=== PATIENT | female | born 1985 | race Two or more races ===

== ENCOUNTER 2020-03-15 16:07 | Emergency (ER) | payer MEDICAID, OTHER ==
[~2020-03-15] VITALS: Ht 165.1 cm; Wt 81.6 kg
[~2020-03-15 16:07] MED LIST: BCP; NORPTMEDS CO; PREN-96 PO
[2020-03-15 16:18] VITALS: BP 130/78
== END 2020-03-15 17:34 | disposition home or self-care (01) ==
LOC: ER 16:07 → EDBD 16:07 → ER 17:34
DX: S39.012A Strain of muscle, fascia and tendon of lower back, initial encounter (principal); S50.812A Abrasion of left forearm, initial encounter; V43.52XA Car driver injured in collision with other type car in traffic accident, initial encounter; Y93.I9 Activity, other involving external motion; Y92.410 Unspecified street and highway as the place of occurrence of the external cause; Y99.8 Other external cause status

== ENCOUNTER → 2022-11-19 | Emergency (ER) | payer MEDICAID ==
[~2022-11-19] VITALS: Ht 162.6 cm; Wt 104.5 kg
[~2022-11-19] MED LIST changes: +KETOROLAC TROMETH 30 MG/ML 1ML VIAL IM ONE
[2022-11-19 18:22] VITALS: BP 134/89
[2022-11-19 19:06] LABS: Mean Corpuscular Hemoglobin 25.8 pg (28.0-32.0)
[2022-11-19 19:09] LABS: Hematocrit 35.6 % (36.0-46.0); Mean Corpuscular Hgb Conc. 33.6 g/dL (32.0-36.0); Mean Corpuscular Volume 76.6 fL (80.0-100.0); Red Blood Cells 4.65 10^6/uL (4.0-5.20); White Blood Cell 6.2 10^3/uL (4.4-10.8)
[2022-11-19 19:13] LABS: Band Neutrophils % (manual) 0; Basophils % (manual) 0 (0.0-2.0); Blast Cells 0; Metamyelocytes % 0; Myelocytes % 0; Promyelocytes % 0; Reactive Lymphocytes 0
[2022-11-19 19:24] LABS: Albumin 3.9 g/dL (3.4-5.0); Calcium 8.6 mg/dL (8.5-10.1); Potassium 3.8 mmol/L (3.5-5.1)
[2022-11-19 19:28] LABS: BUN/Creatinine Ratio 19.7 (10.0-20.0); Bilirubin, Total 0.7 mg/dL (0.2-1.0); Total Protein 7.8 g/dL (6.4-8.2)
[2022-11-19 19:51] LABS: Eosinophils % (manual) 6 (0-7); Lymphocytes % (manual) 62 (10.0-50.0); Monocytes % (manual) 6 (0-12)
== END | disposition home or self-care (01) ==
LOC: ER 17:13
DX: R51.9 Headache, unspecified (principal); Z90.49 Acquired absence of other specified parts of digestive tract
CPT/HCPCS: 36415; 70450; 80053; 85007; 85027; 96372; 99285; J1885

== ENCOUNTER 2023-05-03 03:48 | Emergency (ER) | payer MEDICAID ==
[~2023-05-03] VITALS: Ht 160 cm; Wt 104.0 kg
[~2023-05-03 03:48] MED LIST changes: -KETOROLAC TROMETH 30 MG/ML 1ML VIAL IM ONE
[2023-05-03 04:54] LABS: Basophils # (auto) 0 10 ^3/uL (0-0.2); Basophils % (auto) 0.7 % (0.0-2.0); Eosinophils # (auto) 0.5 10 ^3/uL (0-0.8); Eosinophils % (auto) 7.6 % (0.0-7.0); Hematocrit 43.4 % (36.0-46.0); Hemoglobin 14.7 g/dL (12.2-16.2); Lymphocytes % (auto) 45.4 % (10.0-50.0); Mean Corpuscular Hemoglobin 27.6 pg (28.0-32.0); Mean Corpuscular Hgb Conc. 33.9 g/dL (32.0-36.0); Mean Corpuscular Volume 81.4 fL (80.0-100.0); Monocytes # (auto) 0.5 10 ^3/uL (0-1.3); Monocytes % (auto) 7.5 % (0.0-12.0); Neutrophils # (auto) 2.6 10 ^3/uL (1.6-8.6); Neutrophils % (auto) 38.8 % (37.0-80.0); Nucleated Red Blood Cells % 0.2 %; Red Blood Cells 5.32 10^6/uL (4.0-5.20); Red Cell Distribution Width 17.5 % (11.8-14.3); White Blood Cell 6.7 10^3/uL (4.4-10.8)
[2023-05-03 05:06] LABS: INR 0.99 (0.9-1.15); Partial Thromboplastin Time 29.6 SEC (24.5-34.5); Prothrombin Time 10.4 sec (9.3-11.8)
[2023-05-03 05:11] LABS: Alanine Aminotransferase 37 U/L (7-40); Alkaline Phosphatase 102 U/L (46-116); Anion Gap 7 (5-15); Aspartate Aminotransferase 34 U/L (13-40); BUN/Creatinine Ratio 7.6 (10.0-20.0); Blood Urea Nitrogen 6 mg/dL (9-23); Calcium 9.2 mg/dL (8.7-10.4); Carbon Dioxide 26 mmol/L (20-30); Chloride 105 mmol/L (98-107); Glucose 124 mg/dL (74-106); Magnesium 1.9 mg/dL (1.6-2.6); Potassium 3.6 mmol/L (3.5-5.1); Sodium 138 mmol/L (136-145)
[2023-05-03 05:12] LABS: Albumin 4.4 g/dL (3.2-4.8); Bilirubin, Total 1.4 mg/dL (0.2-1.0); Total Protein 7.4 g/dL (5.7-8.2)
[2023-05-03] MEDS ORDERED: methylPREDNISolone SOD SUCC 125 MG/2 ML VL IM ONE (09:00)
[2023-05-03 11:30] VITALS: BP 134/98; PULSE 98; RESP 19; TEMP 97.8; O2SAT 95
== END 2023-05-03 11:34 | disposition home or self-care (01) ==
LOC: ER 03:48
DX: J45.901 Unspecified asthma with (acute) exacerbation (principal); Z90.49 Acquired absence of other specified parts of digestive tract; Z98.890 Other specified postprocedural states
CPT/HCPCS: 36415; 71045; 71275; 80053; 83735; 83880; 84484; 85025; 85610; 85730; 93005; 96372; 99285; J2930

== ENCOUNTER 2023-08-08 21:00 | Emergency (ER) | payer MEDICAID ==
[~2023-08-08] VITALS: Ht 160 cm; Wt 109.0 kg
[2023-08-08 22:01] VITALS: BP 133/79; PULSE 95; RESP 18; TEMP 98.2; O2SAT 94
== END 2023-08-08 22:17 | disposition home or self-care (01) ==
LOC: ER 21:00
DX: Z48.00 Encounter for change or removal of nonsurgical wound dressing (principal); Z90.49 Acquired absence of other specified parts of digestive tract

== ENCOUNTER 2023-08-20 10:15 | Emergency (ER) | payer MEDICAID ==
[~2023-08-20] VITALS: Ht 160 cm; Wt 101.0 kg
[2023-08-20 11:23] LABS: Urine Bacteria FEW /hpf (None Seen); Urine Blood 3+ /uL (Negative); Urine Clarity Clear (Clear); Urine Color Yellow (Yellow); Urine Mucus FEW (None Seen); Urine Protein, UAD 1+ (Negative); Urine Specific Gravity 1.031 (1.001-1.035); Urine WBC 5 /hpf (0 - 5)
[2023-08-20] MEDS ORDERED: HYDR-4902 PO (13:37)
[2023-08-20 14:22] VITALS: BP 124/98; PULSE 104; RESP 20; TEMP 97.5; O2SAT 96
== END 2023-08-20 14:10 | disposition home or self-care (01) ==
LOC: ER 10:15
DX: R10.2 Pelvic and perineal pain (principal); N93.8 Other specified abnormal uterine and vaginal bleeding; Z32.02 Encounter for pregnancy test, result negative
CPT/HCPCS: 76830; 76856; 81001; 81025

== ENCOUNTER 2024-03-01 18:23 | Emergency (ER) | payer MEDICAID ==
[~2024-03-01] VITALS: Ht 160 cm; Wt 108.4 kg
[~2024-03-01 18:23] MED LIST changes: +HYDR-4902 PO
[2024-03-01 18:41] VITALS: BP 149/95; PULSE 103; RESP 18; O2SAT 96
[2024-03-01] MEDS ORDERED: ACET500T58 PO (22:20)
== END 2024-03-01 22:58 | disposition home or self-care (01) ==
LOC: ER 18:23
DX: S16.1XXA Strain of muscle, fascia and tendon at neck level, initial encounter (principal); R51.9 Headache, unspecified; E11.9 Type 2 diabetes mellitus without complications; Z90.49 Acquired absence of other specified parts of digestive tract; V43.52XA Car driver injured in collision with other type car in traffic accident, initial encounter; Y93.89 Activity, other specified; Y92.488 Other paved roadways as the place of occurrence of the external cause; Y99.8 Other external cause status

== ENCOUNTER 2024-07-01 17:33 | Emergency (ER) | payer SELFPAY ==
[~2024-07-01] VITALS: Ht 160 cm; Wt 109.0 kg
[~2024-07-01 17:33] MED LIST changes: +ACET500T58 PO
--- NOTE | 2024-07-01 19:03 | ED.PDOC ---
Eye-HPI HPI Comments THIS IS A 39 Y/O F PT C/O COUGH, NASAL CONGESDTION AND SINUS PAIN X 1 WEEK. OTC MEDICATION WITH NI RELIEF. REPORTS CHILLS NO FEVERS. DENIES SOB, CHEST PAIN OR SOB. Chief Complaint: Flu like Time Seen by MD: 18:15 Primary Care Provider: RAEANN Sanders Notes: Nurses Notes, Medications, Allergies Allergies: Coded Allergies: NO KNOWN ALLERGIES (Unverified , 01/16/10) Home Meds Active Scripts Acetaminophen (Acetaminophen) 500 Mg Tab, 500 MG PO Q4HPRN, #30 TAB 0 Refills Prov:AMARJIT PAUL 03/01/24 Hydrocodone-Acetaminophen (Hydrocodone Bitartrate/AC 5-325 mg) 1 Tab Tab, 1 TAB PO Q8HP PRN for 5 Days, #15 TAB Prov:KENNETH BELLA MD 08/20/23 Reported Medications Vit W/ Ferrous Fumara ( One Daily) Daily Tab, 1 TAB PO DAILY, #90 TAB 3 Refills 11/08/15 No Reported Medication (NO REPORTED MEDICATION) Ea, 0 CO UNK, EA PATIENT HAS NO REPORTED MEDICATIONS 05/06/13 [Bcp] No Conflict Check 02/03/11 Family History Family History: Unknown Social History Smoking: Non-Smoker Alcohol: Sober Drugs: Denies Drug Use Lives In: Home Constitutional: denies: chills, diaphoresis, fatigue, fever, malaise, sweats, weakness, others EENTM: reports: nasal discharge, others (SINUS PRESSURE ) Respiratory: reports: cough; denies: hemoptysis, orthopnea, SOB at rest, shortness of breath, SOB with excertion, stridor, wheezing, others Cardiovascular: denies: chest pain, dizzy spells, diaphoresis, Dyspnea on exertion, edema, irregular heart beat, left arm pain, lightheadedness, palpitations, PND, syncope, others Gastrointestinal: denies: abdomen distended, abdominal pain, blood streaked bowels, constipated, diarrhea, dysphagia, difficulty swallowing, hematemesis, melena, nausea, poor appetite, poor fluid intake, rectal bleeding, rectal pain, vomiting, others Genitourinary: denies: abnormal vagina bleeding, burning, dyspareunia, dysuria, flank pain, frequency, hematuria, incontinence, pain, , vagina discharge, urgency, others Neurological: denies: dizziness, fainting, headache, left sided numbness, left sided weakness, numbness, paresthesia, pre-existing deficit, right sided numbness, right sided weakness, seizure, speech problems, tingling, tremors, weakness, others Musculoskeletal: denies: back pain, gout, joint pain, joint swelling, muscle pain, muscle stiffness, neck pain, others Integumetry: denies: bruises, change in color, change in hair/nails, dryness, laceration, lesions, lumps, rash, wounds, others Allergic/Immunocompromised: denies: Difficulty Healing, Frequent Infections, Hives, Itching, others Hematologic/Lymphatic: denies: anemia, blood clots, easy bleeding, easy bruising, swollen glands, others Endocrine: denies: excessive hunger, excessive sweating, excessive thirst, excessive urination, flushing, intolerance to cold, intolerance to heat, unexplained weight gain, unexplained weight loss, others Psychiatric: denies: anxiety, bipolar disorder, depression, hopeless, panic disorder, schizophrenia, sleepless, suicidal, others Physical Exam General Appearance: No Apparent Distress, Normal HEENT: Pharynx Normal, TMs Normal, Other (FRONTAL SINUS MODERATE PAIN ON PALPATION ) Neck: Full Range of Motion, Non-Tender, Normal, Normal Inspection Respiratory: Chest Non-Tender, Lungs Clear, No Accessory Muscle Use, No Respiratory Distress, Normal Breath Sounds Cardiovascular: No Edema, No JVD, No Murmur, No Gallop, Normal Peripheral Pulses, Regular Rate/Rhythm Breast Exam: Deferred Gastrointestinal: No Organomegaly, Non Tender, No Pulsatile Mass, Normal Bowel Sounds, Soft Genitalia: Deferred Pelvic: Deferred Rectal: Deferred Extremities: No calf tenderness, Normal capillary refill, Normal inspection, Normal range of motion, Non-tender, No pedal edema Musculoskeletal : Apperance: Normal Neurologic: Alert, 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 Was a procedure done?: No EENT DIFF Eye: N/A Sore Throat: Pharyngitis, Streptococcal, Viral Pharyngitis X-Ray, Labs, Meds, VS Vital Signs Date Time Temp Pulse Resp B/P (MAP) Pulse Ox O2 Delivery O2 Flow Rate FiO2 07/01/24 19:13 98.2 94 20 144/97 (113) 95 98.2 07/01/24 19:13 98.2 94 20 144/97 (113) 95 07/01/24 19:13 Room Air X-Ray, Labs, Meds, VS Comment COVID, INFLUENZA NEGATIVE. UA WNL. LIKELY BACTERIAL TRIAL ABX AND STEROIDS. F/U W/ PCP NEEDED. REST INCREASE PO FLUIDS, ER REURN PRECAUTIONS GIVEN PT AGREES W/DISCHARGE PLAN OF CARE Time of 1ST Reevaluation: 19:02 Reevaluation 1ST: Improved Patient Education/Counseling: Other Family Education/Counseling: Diagnosis, Treatment, Prognosis, Need For Follow Up Departure 1 Departure Time of Disposition: 19:02 Impression: Primary Impression: Sinusitis, acute frontal Qualified Codes: J01.10 - Acute frontal sinusitis, unspecified Disposition: 01 HOME / SELF CARE / HOMELESS Condition: Stable Discharged With: Relative (Mother) Critical Care Note Critical Care Time?: No Stability Stability form required: ANDREZ Edwards Jul 01, 2024 19:03
[2024-07-01 19:13] VITALS: BP 144/97; PULSE 94; RESP 20; TEMP 98.2; O2SAT 95
[2024-07-01] MEDS: methylPREDNISolone SOD SUCC 125 MG/2 ML VL IM ONE (19:48)
== END 2024-07-01 19:55 | disposition home or self-care (01) ==
LOC: ER 17:33
DX: J01.10 Acute frontal sinusitis, unspecified (principal); Z79.899 Other long term (current) drug therapy
CPT/HCPCS: 96372; 99283; J2919